=== PATIENT | female | born 2000 | race Caucasian/White ===

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

== ENCOUNTER 2022-03-12 05:44 | Emergency (ER) | payer MEDICAID, OTHER ==
[2022-03-12 06:03] VITALS: BP 150/71; PULSE 89
[2022-03-12] MEDS ORDERED: Ondansetron 4 MG/2 ML SDV IVPUSH ONE (06:36)
[2022-03-12] MEDS ORDERED: HYDROmorphone 1 MG/ML Syringe IVPUSH STA (06:36)
[2022-03-12] MEDS ORDERED: Sodium Chloride 0.9% 1,000 ML IV SCH (06:45)
[2022-03-12] MEDS ORDERED: Iopamidol 612 MG/ML 50 ML SDV IVPUSH ONE (07:32)
[2022-03-12] MEDS ORDERED: Iopamidol 612 MG/ML 100 ML Bottle IVPUSH ONE (07:32)
[2022-03-12] MEDS ORDERED: Sodium Chloride 0.9% 10 ML Syringe FLUSH PRN (07:32)
[2022-03-12] MEDS ORDERED: HYDROmorphone 0.5 MG/0.5 ML Syringe IVPUSH ONE (10:06)
== END 2022-03-12 10:50 | disposition home or self-care (01) ==
LOC: JD.ED 05:44
DX: K80.70 Calculus of gallbladder and bile duct without cholecystitis without obstruction (principal); E11.9 Type 2 diabetes mellitus without complications; E66.9 Obesity, unspecified; Z68.43 Body mass index [BMI] 50.0-59.9, adult; Z88.8 Allergy status to other drugs, medicaments and biological substances
CPT/HCPCS: 36415; 74177; 76705; 80053; 81001; 81025; 83690; 85025; 96361; 96374; 96375; 96376; 99285; J1170; J2405; J3490; J7030; Q9967

== ENCOUNTER 2022-03-14 19:48 | Emergency (ER) | payer MEDICAID ==
[2022-03-14 20:37] VITALS: BP 160/76; PULSE 71
== END 2022-03-14 21:38 | disposition home or self-care (01) ==
LOC: JD.ED 19:48
DX: R10.11 Right upper quadrant pain (principal); E11.9 Type 2 diabetes mellitus without complications; E66.9 Obesity, unspecified; Z68.43 Body mass index [BMI] 50.0-59.9, adult; Z88.8 Allergy status to other drugs, medicaments and biological substances
CPT/HCPCS: 99283

== ENCOUNTER 2023-06-26 23:47 | Emergency (ER) | payer MEDICAID ==
[2023-06-27 01:40] VITALS: BP 129/69; PULSE 88
== END 2023-06-27 01:39 | disposition home or self-care (01) ==
LOC: JD.ED 23:47
DX: B34.9 Viral infection, unspecified (principal); R11.11 Vomiting without nausea; J45.20 Mild intermittent asthma, uncomplicated; E11.9 Type 2 diabetes mellitus without complications; E66.9 Obesity, unspecified; Z68.43 Body mass index [BMI] 50.0-59.9, adult; Z88.8 Allergy status to other drugs, medicaments and biological substances
CPT/HCPCS: 99284

== ENCOUNTER 2023-08-30 00:51 | Emergency (ER) | payer MEDICAID ==
[2023-08-30] MEDS: Lidocaine 2% Viscous Solution 15 ML UD PO ONE (01:36)
[2023-08-30 02:24] VITALS: BP 163/68; PULSE 67
== END 2023-08-30 02:12 | disposition home or self-care (01) ==
LOC: JD.ED 00:51
DX: T17.200A Unspecified foreign body in pharynx causing asphyxiation, initial encounter (principal); J02.9 Acute pharyngitis, unspecified; E11.9 Type 2 diabetes mellitus without complications; Z79.899 Other long term (current) drug therapy; Z88.8 Allergy status to other drugs, medicaments and biological substances; Z91.018 Allergy to other foods
CPT/HCPCS: 99283; A9270